=== PATIENT | female | born 1970 | race Caucasian/White ===

== ENCOUNTER 2018-06-08 17:52 | Observation (INO) | payer OTHER ==
[2018-06-08 18:12] VITALS: BMI 24.9
--- NOTE | 2018-06-08 20:02 | C.PDOC ---
History Of Present Illness 48 year old female presents with new onset chest pain for the past 2 days, waxing and waning, worse with exertion. Patient also reports with associated dyspnea on exertion. Denies associated leg swelling, leg pain, recent travel, sm oking Hx, prior lung problem, or known heart disease. She is a diabetic, compliant. Time Seen by Provider: 06/08/18 19:37 Chief Complaint (Nursing): Chest Pain History Per: Patient History/Exam Limitations: no limitations Onset/Duration Of Symptoms: Days (2), Waxing/Waning Current Symptoms Are (Timing): Still Present Associated Symptoms: Dyspnea Exacerbating Factors: Exertion Recent travel outside of the [place]: No Past Medical History Reviewed: Historical Data, Nursing Documentation, Vital Signs Vital Signs: Last Vital Signs Temp 98.4 F 06/08/18 18:05 Pulse 69 06/08/18 18:05 Resp 18 06/08/18 18:05 BP 151/86 H 06/08/18 18:05 Pulse Ox 100 06/08/18 18:05 Family History: States: No Known Family Hx - Social History Hx Alcohol Use: No Hx Substance Use: No Review Of Systems Except As Marked, All Systems Reviewed And Found Negative. Cardiovascular: Positive for: Chest Pain Respiratory: Positive for: SOB with Excertion Gastrointestinal: Negative for: Nausea, Vomiting Musculoskeletal: Negative for: Leg Pain (or swelling) Physical Exam - Physical Exam Appears: Non-toxic Skin: Normal Color, Warm, Dry Head: Atraumatic, Normacephalic Eye(s): bilateral: Normal Inspection Oral Mucosa: Moist Neck: Normal, Supple Chest: Symmetrical, No Tenderness Cardiovascular: Rhythm Regular Respiratory: Normal Breath Sounds, No Rales, No Rhonchi, No Wheezing Gastrointestinal/Abdominal: Soft, No Tenderness Extremity: Normal ROM (x4) Neurological/Psych: Oriented x3, Normal Speech ED Course And Treatment - Laboratory Results Result Diagrams: 06/08/18 20:04 06/08/18 20:04 ECG: Interpreted By Me, Viewed By Me ECG Rhythm: Sinus Rhythm ECG Interpretation: Normal Rate From EC O2 Sat by Pulse Oximetry: 100 (Room air) Pulse Ox Interpretation: Normal Progress - Re-Evaluation Re-evaluation Note: 06/08/18 23:02 FEELS BETTER VSS APPEARS COMFORTABLE. CT REPORT NEG [facility] D/W DR SIXTO MED PATTERN MOLDER WILL ADMIT - Data Reviewed Data Reviewed: Lab, Diagnostic imaging, EKG, Old records Medical Decision Making Medical Decision Making: Plan: * CTA * EKG * Blood work * CXR * Urinalysis * Aspirin * Nitro Disposition Counseled Patient/Family Regarding: Studies Performed, Diagnosis - Disposition Disposition: HOSPITALIZED Disposition Time: 23:03 Condition: SERIOUS Forms: [facility] ([place]) - POA Present On Arrival: Poor Glycemic Control - Clinical Impression Clinical Impression: Chest pain - Scribe Statement The provider has reviewed the documentation as recorded by the Scribchris Begum All medical record entries made by the Donnaibchris were at my direction and personally dictated by me. I have reviewed the chart and agree that the record accurately reflects my personal performance of the history, physical exam, medical decision making, and the department course for this patient. I have also personally directed, reviewed, and agree with the discharge instructions and disposition.
[2018-06-08 20:09] LABS: BASO # 0.1 K/uL (0.0-0.2); BASO % 0.7 % (0.0-2.0); EOS # 0.2 K/uL (0.0-0.7); EOS % 2.7 % (0.0-4.0); HEMOGLOBIN 10.9 g/dL (11.0-16.0); LYMPH # 2.8 K/uL (1.0-4.3); LYMPH % 35.8 % (20.0-40.0); MEAN CELL VOLUME 71.1 fL (81.0-99.0); MEAN CORPUSCULAR HGB CONC 30.9 g/dL (33.0-37.0); MEAN PLATELET VOLUME 8.2 fL (7.2-11.7); MONO # 0.8 K/uL (0.0-0.8); MONO % 10.6 % (0.0-10.0); NEUT % 50.2 % (50.0-75.0); RBC 4.95 Mil/uL (3.80-5.20); WHITE BLOOD COUNT 7.9 K/uL (4.8-10.8)
[2018-06-08 20:20] LABS: SQUAMOUS EPITHIAL 17 /hpf (0-5); URINE AMORPHOUS SEDIMENT MANY /ul (<OCC); URINE BACTERIA RARE (<OCC); URINE BILIRUBIN NEGATIVE (NEGATIVE); URINE BLOOD 2+ (NEGATIVE); URINE CLARITY Hazy (Clear); URINE COLOR Yellow (YELLOW); URINE GLUCOSE (UA) NORMAL (Normal); URINE LEUKOCYTE ESTERASE TRACE Leu/uL (Negative); URINE PROTEIN NEGATIVE (NEGATIVE); URINE UROBILINOGEN NORMAL mg/dL (0.2-1.0)
[2018-06-08 20:25] LABS: ALB/GLOB RATIO 1.3 (1.0-2.1); ALBUMIN 4.5 g/dL (3.5-5.0); ALT/SGPT 18 U/L (9-52); AST/SGOT 20 U/L (14-36); BLOOD UREA NITROGEN 14 mg/dL (7-17); CALCIUM 9.1 mg/dl (8.6-10.4); GFR NON-AFRICAN AMERICAN > 60
[2018-06-08 20:34] LABS: B-TYPE NATRIURETIC PEPTIDE 97.1 pg/mL (0-450)
[2018-06-08] MEDS ORDERED: Iodixanol 320 MG/ML 100 ML BOTTLE IV ONE (21:17)
[2018-06-08] MEDS ORDERED: Enoxaparin 60 mg Syringe SC STA (22:26)
[2018-06-08] MEDS ORDERED: Enoxaparin 100 mg Syringe ONE (22:45)
[2018-06-09 06:28] LABS: HDL CHOLESTEROL 34 mg/dL (30-70)
[2018-06-09 06:39] LABS: LDL CHOLESTEROL 103 mg/dL (0-129)
[2018-06-09 06:41] LABS: CK-MB 0.27 ng/mL (0.0-3.38)
--- NOTE | 2018-06-09 07:46 | CT ---
Date of service: 06/08/2018 PROCEDURE: CT Chest with contrast (Pulmonary Angiogram) HISTORY: SOB r/o PE COMPARISON: None available. TECHNIQUE: Axial computed tomography images were obtained of the chest in the pulmonary arterial phase of enhancement. Coronal and sagittal reformatted images were created and reviewed. Intravenous contrast dose: 100 cubic centimeters Visipaque 320 Radiation dose: Total exam DLP = 464.98 mGy-cm. This CT exam was performed using one or more of the following dose reduction techniques: Automated exposure control, adjustment of the mA and/or kV according to patient size, and/or use of iterative reconstruction technique. FINDINGS: PULMONARY ARTERIES: Cathleen arteries are unremarkable with no evidence of pulmonary embolism. AORTA: No acute findings. No thoracic aortic aneurysm. No aortic atherosclerotic calcification or mural plaque present. LUNGS: Unremarkable. No nodule, mass or pulmonary consolidation. PLEURAL SPACES: Unremarkable. No effusion or pneumothorax. HEART: Unremarkable. No cardiomegaly. No significant pericardial effusion. LYMPH NODES: No lymphadenopathy. BONES, CHEST WALL: Unremarkable. No fracture or destructive lesion OTHER FINDINGS: Visualized upper abdomen included in study is unremarkable. IMPRESSION: Unremarkable CT pulmonary angiogram. No pulmonary embolus. The lungs and included upper abdomen are also unremarkable.
[2018-06-09] MEDS: (Novolog) Insulin Aspart, Recombinant 100 u/ml 10 ml vial SC SCH ×4 (07:52→21:31)
[2018-06-09 09:15] LABS: BASO # 0.1 K/uL (0.0-0.2); EOS # 0.2 K/uL (0.0-0.7); EOS % 2.7 % (0.0-4.0); HEMOGLOBIN 10.7 g/dL (11.0-16.0); LYMPH # 1.7 K/uL (1.0-4.3); LYMPH % 24.2 % (20.0-40.0); MEAN CELL VOLUME 70.9 fL (81.0-99.0); MEAN CORPUSCULAR HEMOGLOBIN 22.2 pg (27.0-31.0); MEAN CORPUSCULAR HGB CONC 31.3 g/dL (33.0-37.0); MEAN PLATELET VOLUME 8.2 fL (7.2-11.7); MONO # 0.6 K/uL (0.0-0.8); MONO % 8.5 % (0.0-10.0); NEUT # 4.6 K/uL (1.8-7.0); NEUT % 63.6 % (50.0-75.0); NRBC % 0.1 % (0.0-2.0); RBC 4.81 Mil/uL (3.80-5.20); RED CELL DISTRIBUTION WIDTH 17.5 % (11.5-14.5); WHITE BLOOD COUNT 7.2 K/uL (4.8-10.8)
[2018-06-09 09:32] LABS: ALB/GLOB RATIO 1.3 (1.0-2.1); ALBUMIN 3.8 g/dL (3.5-5.0); ALT/SGPT 13 U/L (9-52); AST/SGOT 20 U/L (14-36); BLOOD UREA NITROGEN 17 mg/dL (7-17); CALCIUM 8.5 mg/dl (8.6-10.4); GFR NON-AFRICAN AMERICAN > 60
[2018-06-09] MEDS ORDERED: Home Med 1 UNIT (Metformin 500 mg) PO SCH (10:00)
--- NOTE | 2018-06-09 10:10 | RAD ---
Date of service: 06/08/2018 HISTORY: chest pain COMPARISON: No prior. TECHNIQUE: Chest PA and lateral FINDINGS: LUNGS: No focal infiltrate or effusion. Upper lobe granulomatous changes. Bibasilar breast and nipple shadows. Small nodular density at the lateral aspect of the right midlung zone may represent confluence of shadows with ribs and vessels. PLEURA: No significant pleural effusion identified. No pneumothorax apparent. CARDIOVASCULAR: No aortic atherosclerotic calcification present. Normal cardiac size. OSSEOUS STRUCTURES: Degenerative changes in the spine with mild loss of height of a lower thoracic vertebral body. VISUALIZED UPPER ABDOMEN: Normal. OTHER FINDINGS: None. IMPRESSION: No focal infiltrate or effusion. Degenerative changes in the spine with mild loss of height of a lower thoracic vertebral body.
--- NOTE | 2018-06-09 12:46 | CARD ---
APPROVED REPORT Date of service: 06/08/2018 EKG Measurement Heart [id number] <Conclusion> Normal sinus rhythm with sinus arrhythmia Possible Left atrial enlargement Nonspecific ST abnormality Prolonged QT Abnormal ECG
--- NOTE | 2018-06-09 18:25 | CP.PCM.CON ---
History of Present Illness - History of Present Illness History of Present Illness: 48 year old female presents with new onset chest pain for the past 2 days, waxing and waning, worse with exertion. Patient also reports with associated dyspnea on exertion. Denies associated leg swelling, leg pain, recent travel, smoking Hx, prior lung problem, or known heart disease. She is a diabetic, compliant. At the time of examination resting in bed, have walked to bath room without any difficulty. No chest pain at this time. Past Patient History - Past Medical History & Family History Past Medical History?: Yes - Past Social History Smoking Status: Never Smoked - CARDIAC Hx Cardiac Disorders: No - PULMONARY Hx Respiratory Disorders: No - NEUROLOGICAL Hx Neurological Disorder: No - HEENT Hx HEENT Problems: No - RENAL Hx Chronic Kidney Disease: No - ENDOCRINE/METABOLIC Hx Endocrine Disorders: Yes Hx Diabetes Mellitus Type 2: Yes - HEMATOLOGICAL/ONCOLOGICAL Hx Blood Disorders: No - INTEGUMENTARY Hx Dermatological Problems: No - MUSCULOSKELETAL/RHEUMATOLOGICAL Hx Musculoskeletal Disorders: No Hx Falls: No - GASTROINTESTINAL Hx Gastrointestinal Disorders: No - GENITOURINARY/GYNECOLOGICAL Hx Genitourinary Disorders: No - PSYCHIATRIC Hx Psychophysiologic Disorder: No Hx Substance Use: No - SURGICAL HISTORY Hx Surgeries: Yes Hx Tubal Ligation: Yes (2001) Other/Comment: 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 fibroid removal 2006 - ANESTHESIA Hx Anesthesia: Yes Hx Anesthesia Reactions: No Hx Malignant Hyperthermia: No Has any member of the family had a problem w/ anesthesia?: No Meds Allergies/Adverse Reactions: Allergies Allergy/AdvReac Type Severity Reaction Status Date / Time No Known Allergies Allergy Verified 06/08/18 18:12 - Medications Medications: Current Medications Insulin Aspart (Novolog) 0 unit SC ACHS [facility]; Protocol Last Admin: 06/09/18 16:39 Dose: Not Given [facility] Last Admin: 06/09/18 16:40 Dose: Not Given Physical Exam - Head Exam Head Exam: NORMOCEPHALIC - Neck Exam Neck exam: Positive for: Normal Inspection - Respiratory Exam Respiratory Exam: NORMAL BREATHING PATTERN - Cardiovascular Exam Cardiovascular Exam: REGULAR RHYTHM - GI/Abdominal Exam GI & Abdominal Exam: Normal Bowel Sounds - Extremities Exam Extremities exam: Positive for: normal inspection - Neurological Exam Neurological exam: Alert, Oriented x3 Results - Vital Signs Recent Vital Signs: Last Vital Signs Temp 97.8 F 06/09/18 14:00 Pulse 79 06/09/18 18:00 Resp 16 06/09/18 16:05 BP 101/53 L 06/09/18 16:06 Pulse Ox 100 06/09/18 16:05 - Labs Result Diagrams: 06/09/18 08:51 06/09/18 08:51 Labs: Laboratory Results - last 24 hr 06/08/18 06/08/18 06/08/18 20:04 20:04 20:04 WBC 7.9 RBC 4.95 Hgb 10.9 L Hct 35.2 MCV 71.1 L MCH 22.0 L MCHC 30.9 L RDW 17.0 H Plt Count 377 MPV 8.2 Neut % (Auto) 50.2 Lymph % (Auto) 35.8 [place] % (Auto) 10.6 H Eos % (Auto) 2.7 Baso % (Auto) 0.7 Neut # (Auto) 4.0 Lymph # (Auto) 2.8 [place] # (Auto) 0.8 Eos # (Auto) 0.2 Baso # (Auto) 0.1 D-Dimer, Quantitative 1020 H Sodium Potassium Chloride Carbon Dioxide Anion Gap BUN Creatinine Est GFR ( Amer) Est GFR (Non-Af Amer) POC Glucose (mg/dL) Random Glucose Hemoglobin A1c Calcium Phosphorus Magnesium Total Bilirubin AST ALT Alkaline Phosphatase Total Creatine Kinase CK-MB (Mass) Troponin I NT-Pro-B Natriuret Pep Total Protein Albumin Globulin Albumin/Globulin Ratio Triglycerides Cholesterol LDL Cholesterol Direct HDL Cholesterol TSH 3rd Generation Urine Color Yellow Urine Clarity Hazy Urine pH 5.0 Ur Specific [place] 1.014 Urine Protein Negative Urine Glucose (UA) Normal Urine Ketones Negative Urine Blood 2+ H Urine Nitrate Negative Urine Bilirubin Negative Urine Urobilinogen Normal Ur Leukocyte Esterase Trace Urine WBC (Auto) 6 H Urine RBC (Auto) 14 H Ur Squamous Epith Cells 17 H Amorphous Sediment Many H Urine Bacteria Rare 06/08/18 06/09/18 06/09/18 20:04 06:00 06:00 WBC RBC Hgb Hct MCV MCH MCHC RDW Plt Count MPV Neut % (Auto) Lymph % (Auto) [place] % (Auto) Eos % (Auto) Baso % (Auto) Neut # (Auto) Lymph # (Auto) [place] # (Auto) Eos # (Auto) Baso # (Auto) D-Dimer, Quantitative Sodium 140 Potassium 3.6 Chloride 103 Carbon Dioxide 28 Anion Gap 12 BUN 14 Creatinine 0.7 Est GFR ( Amer) > 60 Est GFR (Non-Af Amer) > 60 POC Glucose (mg/dL) Random Glucose 111 H Hemoglobin A1c 6.7 H Calcium 9.1 Phosphorus Magnesium Total Bilirubin 0.7 AST 20 ALT 18 Alkaline Phosphatase 48 Total Creatine Kinase 47 CK-MB (Mass) 0.27 Troponin I < 0.0120 < 0.0120 NT-Pro-B Natriuret Pep 97.1 Total Protein 7.9 Albumin 4.5 Globulin 3.4 Albumin/Globulin Ratio 1.3 Triglycerides 67 Cholesterol 150 LDL Cholesterol Direct 103 HDL Cholesterol 34 TSH 3rd Generation 4.76 H Urine Color Urine Clarity Urine pH Ur Specific [place] Urine Protein Urine Glucose (UA) Urine Ketones Urine Blood Urine Nitrate Urine Bilirubin Urine Urobilinogen Ur Leukocyte Esterase Urine WBC (Auto) Urine RBC (Auto) Ur Squamous Epith Cells Amorphous Sediment Urine Bacteria 06/09/18 06/09/18 06/09/18 08:51 08:51 14:04 WBC 7.2 RBC 4.81 Hgb 10.7 L Hct 34.1 MCV 70.9 L MCH 22.2 L MCHC 31.3 L RDW 17.5 H Plt Count 361 MPV 8.2 Neut % (Auto) 63.6 Lymph % (Auto) 24.2 [place] % (Auto) 8.5 Eos % (Auto) 2.7 Baso % (Auto) 1.0 Neut # (Auto) 4.6 Lymph # (Auto) 1.7 [place] # (Auto) 0.6 Eos # (Auto) 0.2 Baso # (Auto) 0.1 D-Dimer, Quantitative Sodium 137 Potassium 4.0 Chloride 105 Carbon Dioxide 26 Anion Gap 9 L BUN 17 Creatinine 0.6 L Est GFR ( Amer) > 60 Est GFR (Non-Af Amer) > 60 POC Glucose (mg/dL) Random Glucose 121 H Hemoglobin A1c Calcium 8.5 L Phosphorus 4.1 Magnesium 1.8 Total Bilirubin 0.8 AST 20 ALT 13 Alkaline Phosphatase 51 Total Creatine Kinase 74 CK-MB (Mass) 0.70 Troponin I < 0.0120 NT-Pro-B Natriuret Pep Total Protein 6.7 Albumin 3.8 Globulin 2.9 Albumin/Globulin Ratio 1.3 Triglycerides Cholesterol LDL Cholesterol Direct HDL Cholesterol TSH 3rd Generation Urine Color Urine Clarity Urine pH Ur Specific [place]isman Urine Protein Urine Glucose (UA) Urine Ketones Urine Blood Urine Nitrate Urine Bilirubin Urine Urobilinogen Ur Leukocyte Esterase Urine WBC (Auto) Urine RBC (Auto) Ur Squamous Epith Cells Amorphous Sediment Urine Bacteria 06/09/18 16:28 WBC RBC Hgb Hct MCV MCH MCHC RDW Plt Count MPV Neut % (Auto) Lymph % (Auto) [place] % (Auto) Eos % (Auto) Baso % (Auto) Neut # (Auto) Lymph # (Auto) [place] # (Auto) Eos # (Auto) Baso # (Auto) D-Dimer, Quantitative Sodium Potassium Chloride Carbon Dioxide Anion Gap BUN Creatinine Est GFR ( Amer) Est GFR (Non-Af Amer) POC Glucose (mg/dL) 109 Random Glucose Hemoglobin A1c Calcium Phosphorus Magnesium Total Bilirubin AST ALT Alkaline Phosphatase Total Creatine Kinase CK-MB (Mass) Troponin I NT-Pro-B Natriuret Pep Total Protein Albumin Globulin Albumin/Globulin Ratio Triglycerides Cholesterol LDL Cholesterol Direct HDL Cholesterol TSH 3rd Generation Urine Color Urine Clarity Urine pH Ur Specific [place] Urine Protein Urine Glucose (UA) Urine Ketones Urine Blood Urine Nitrate Urine Bilirubin Urine Urobilinogen Ur Leukocyte Esterase Urine WBC (Auto) Urine RBC (Auto) Ur Squamous Epith Cells Amorphous Sediment Urine Bacteria Assessment & Plan (1) Hypothyroidism Assessment and Plan: Follow thyroid profile and adjust medicine accordingly. Status: Acute (2) Chest pain Assessment and Plan: Work-up negative so far. CT scan negative for PE or acute pathology. Transfer to telemetry floor and assess exercise induced angina. Status: Acute
[2018-06-09 20:54] VITALS: O2SAT 99
--- NOTE | 2018-06-10 05:25 | HP ---
The patient is a 48-year-old female. The patient was seen and examined at the bedside on 06/09/2018. CHIEF COMPLAINT: Chest pain. HISTORY OF PRESENT ILLNESS: Ms. Corine Pires is a 48-year-old female with a nonsignificant past medical history, has chest pain for past two days, waxing and waning, worse with exertion. The patient also reports associated dyspnea on exertion. Denies associated leg pains. No swelling of the legs. No recent travel. No history of smoking. No headache. No dizziness. No prior lung problems. No COPD or asthma. No known heart disease. She is diabetic. Compliant with the medications as per the patient. PAST MEDICAL HISTORY: Diabetes. FAMILY HISTORY: Father and mother are noncontributory. HABITS: No smoking. No drug. No ethanol. REVIEW OF SYSTEMS: The patient was seen and examined at the bedside, looking comfortable. No fever. No chills. No hematuria. No hematochezia. Only had chest pain and sometimes shortness of breath. PHYSICAL EXAMINATION: VITAL SIGNS: Temperature 98.4, pulse 59, respiratory rate 18, blood pressure 150/83, pulse oximetry 100%. HEENT: Head is normocephalic and atraumatic. Eyes PERRLA. Extraocular muscles intact. Conjunctivae clear. Nose patent. NECK: Supple. No carotid bruit. No JVD or thyromegaly. CHEST: Bilaterally symmetrical. HEART: S1, S2 positive. LUNGS: Clear to auscultation. ABDOMEN: Soft. Bowel sounds present. No organomegaly. EXTREMITIES: No edema. No cyanosis. NEUROLOGIC: The patient is awake, alert. Follows simple commands. LABORATORY DATA: White blood cell 7.2, hemoglobin 10.7, hematocrit 34.1, platelets 361. Sodium 137, potassium 4, BUN 70, creatinine 0.6, glucose 121. Hemoglobin A1c 6.7. Calcium 8.5. ASSESSMENT AND PLAN: Ms. Corine Pires is a 48-year-old female with anemia, hyperglycemia, hypocalcemia, rule out hypothyroidism, hematuria, came with chest pain. CAT scan of the chest is done, reviewed by me. Unremarkable CT pulmonary angiogram. No pulmonary embolism at the lungs and upper abdomen were also unremarkable. Cardiac enzymes are done , Dr. Cuevas, cardiac workup is negative. So far, CT scan is negative for pulmonary embolism and acute pathology. Transfer the patient to telemetry floor and assess exercise-induced angina. Gastrointestinal and deep venous thrombosis prophylaxis. Repeat labs. Aspirin given. Glucophage given for diabetes. Put her on sliding scale. We will follow up. Lindsey Crawford MD MTDD
[2018-06-10] MEDS: (Novolog) Insulin Aspart, Recombinant 100 u/ml 10 ml vial SC SCH ×3 (07:30→16:30)
[2018-06-10 14:07] VITALS: PULSE 79
[2018-06-10 15:58] VITALS: BP 97/47; RESP 18; TEMP 98.4
== END 2018-06-10 18:36 | disposition left against medical advice (07) ==
LOC: C.ER 17:52 → C.9E 23:03 → C.9I 06-09 01:52
PROVIDERS: ADMIT Internal Medicine; ATTEND Internal Medicine
DX: R07.9 Chest pain, unspecified (principal); E11.65 Type 2 diabetes mellitus with hyperglycemia; D64.9 Anemia, unspecified; E83.51 Hypocalcemia; R31.9 Hematuria, unspecified; E03.9 Hypothyroidism, unspecified
CPT/HCPCS: 71046; 71275; 80053; 80061; 81001; 81025; 82948; 83036; 83735; 83880; 84100; 84443; 84484; 85025; 85378; 87081; 93005; 96372; 99285; G0378; J1650; Q9967